=== PATIENT | female | born 1980 | race African-American/Black ===

== ENCOUNTER 2017-12-13 20:59 | Emergency (ER) | payer MEDICAID ==
[~2017-12-13] VITALS: Ht 175.3 cm; Wt 111.1 kg
[~2017-12-13 20:59] MED LIST: IBUPROFEN600 MG ORAL; RANITIDINE HCL150 MG ORAL; ZOFRAN ODT4 MG ORAL
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
[2017-12-13] MEDS ORDERED: Pantoprazole Inj IVP ONE (21:45)
[2017-12-13] MEDS ORDERED: Mylanta II UD 30ml ORAL ONE (21:45)
[2017-12-13 22:04] LABS: BASOPHILS % (AUTO) 1.2 % (0.0-2.0); EOSINOPHILS % (AUTO) 2.4 % (0.0-3.0); HEMOGLOBIN 12.6 G/DL (12.0-16.0); LYMPHOCYTES % (AUTO) 43.1 % (20.0-45.0); MEAN CORPUSCULAR VOLUME 93 FL (80-99); MONOCYTES % (AUTO) 8.1 % (1.0-10.0); NEUTROPHILS % (AUTO) 45.2 % (45.0-75.0); PLATELET COUNT 222 K/UL (150-450); RED BLOOD COUNT 4.06 M/UL (4.20-5.40); RED CELL DISTRIBUTION WIDTH 11.5 % (11.6-14.8); WHITE BLOOD COUNT 6.7 K/UL (4.8-10.8)
[2017-12-13 22:14] LABS: ANION GAP 6 mmol/L (5-15); BLOOD UREA NITROGEN 16 mg/dL (7-18); CALCIUM 9.4 MG/DL (8.5-10.1); CARBON DIOXIDE 28 MMOL/L (21-32); CHLORIDE 105 MMOL/L (98-107); CREATININE 0.8 MG/DL (0.55-1.30); SODIUM 138 MMOL/L (136-145)
[2017-12-13 22:20] LABS: ALANINE AMINOTRANSFERASE 33 U/L (12-78); ALBUMIN 3.4 G/DL (3.4-5.0); ALBUMIN/GLOBULIN RATIO 0.8 (1.0-2.7); ALKALINE PHOSPHATASE 139 U/L (46-116); ASPARTATE AMINO TRANSFERASE 25 U/L (15-37); BILIRUBIN,TOTAL 0.2 MG/DL (0.2-1.0)
[2017-12-13] MEDS ORDERED: PRILOSEC OTC20 MG ORAL (22:39)
[2017-12-13] MEDS ORDERED: HYDROCODON-ACE1 EA15 ORAL (22:39)
[2017-12-13 23:21] VITALS: BP 138/81
--- NOTE | 2017-12-14 10:26 | Diagnostic Imaging Report ---
Indication: Chest pain Comparison: None A single view chest radiograph was obtained. Findings: Cardiomediastinal appearance is within normal limits for age. There is an old right clavicle fracture, well-healed. Multiple old rib fractures on the right. Pulmonary vascularity is appropriate. The diaphragmatic contour is smooth and costophrenic angles are sharp. No pleural effusions are identified. The bones are unremarkable. Impression: No acute findings
--- NOTE | 2017-12-14 17:03 | Cardiology Report ---
APPROVED REPORT EKG Measurement Heart [id number] Normal sinus rhythm Possible Left atrial enlargement Borderline ECG
== END 2017-12-13 23:22 | disposition home or self-care (01) ==
LOC: EMR 21:25
DX: R07.9 Chest pain, unspecified (principal); K29.70 Gastritis, unspecified, without bleeding; J45.909 Unspecified asthma, uncomplicated
CPT/HCPCS: 36415; 71045; 80053; 84484; 85025; 93005; 96374; 96375; 99284; C9113

== ENCOUNTER 2018-04-28 16:29 | Emergency (ER) | payer MEDICAID ==
[~2018-04-28] VITALS: Ht 172.7 cm; Wt 99.8 kg
[~2018-04-28 16:29] MED LIST changes: +HYDROCODON-ACE1 EA15 ORAL; +PRILOSEC OTC20 MG ORAL
[2018-04-28] MEDS ORDERED: NKM (16:58)
[2018-04-28] MEDS ORDERED: CORTISPORIN EAR10 ML RIGHT EAR (17:51)
[2018-04-28] MEDS ORDERED: TYLENOL EXTRA500 MG ORAL (17:51)
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
[2018-04-28 18:25] VITALS: BP 135/69
== END 2018-04-28 18:25 | disposition home or self-care (01) ==
LOC: EMR 17:10
DX: H60.91 Unspecified otitis externa, right ear (principal); R51 Headache; H91.91 Unspecified hearing loss, right ear
CPT/HCPCS: 99283

== ENCOUNTER 2018-09-10 14:40 | Emergency (ER) | payer MEDICAID ==
[~2018-09-10] VITALS: Ht 175.3 cm; Wt 94.8 kg
[~2018-09-10 14:40] MED LIST changes: +CORTISPORIN EAR10 ML RIGHT EAR; +NKM; +TYLENOL EXTRA500 MG ORAL
[2018-09-10 14:50] VITALS: BP 121/75
--- NOTE | 2018-09-10 14:50 | NUR ---
ED Nurse Note: PT WALKED IN TO ER TODAY FROM HOME. AOX4. PT C/O COUGH, THROAT PAIN, AND HEADACHE X 2 DAYS AGO. PT DENIES FEVER. TEMP AT BEDSIDE 98.4F. LUNG SOUNDS CLEAR IN ALL LOBES. NO SIGNS OF RESPIRATORY DISTRESS.
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
[2018-09-10] MEDS ORDERED: TYLENOL325 MG ORAL (14:59)
[2018-09-10] MEDS ORDERED: TAMIFLU75 MG ORAL (14:59)
[2018-09-10] MEDS ORDERED: GUAIFENESIN-CO118 M1 ORAL (14:59)
[2018-09-10 15:07] VITALS: BP 122/76
--- NOTE | 2018-09-10 15:09 | NUR ---
ER Nurse Note: PT SITTING PEACEFULLY IN CHAIR IN NAD. AOX4. PRESCRIPTIONS AND DISCHARGE PAPERWORK EXPLAINED TO PT. PT VERBALIZES UNDERSTANDING AND DENIES ANY QUESTIONS AT THIS TIME. PRESCRIPTIONS AND DISCHARGE PAPERWORK GIVEN TO PT AND ID WRISTBAND REMOVED. PT WALKED OUT OF ER WITH STEADY GAIT WITH ALL BELONGINGS.
== END 2018-09-10 15:07 | disposition home or self-care (01) ==
LOC: EMR 15:01
DX: J11.1 Influenza due to unidentified influenza virus with other respiratory manifestations (principal); J45.909 Unspecified asthma, uncomplicated; I10 Essential (primary) hypertension
CPT/HCPCS: 99283

== ENCOUNTER 2019-03-17 21:57 | Emergency (ER) | payer MEDICAID ==
[~2019-03-17] VITALS: Ht 175.3 cm; Wt 113.9 kg
[~2019-03-17 21:57] MED LIST changes: +GUAIFENESIN-CO118 M1 ORAL; +TAMIFLU75 MG ORAL; +TYLENOL325 MG ORAL
--- NOTE | 2019-03-17 22:09 | NUR ---
ED Nurse Note: pt walked in c/o left eye irritation, itching, discomfort, pain and discharge, and headache, noted mild swelling and redness with tearing, will cont monitor.
[2019-03-17] MEDS ORDERED: POLYTRIM OP SOL10 ML OPHTHALM (22:16)
[2019-03-17] MEDS ORDERED: IBUPROFEN600 MG ORAL (22:16)
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
[2019-03-17 22:20] VITALS: BP 129/75
[2019-03-17 22:21] VITALS: BP 121/70
--- NOTE | 2019-03-17 22:21 | NUR ---
ED Nurse Note: pt cleared to be d/c per ER provider, pt discharge and aftercare instruction provided w/ prescription, pt education done via discussion and handout, pt advised to follow up with pcp or return to ed if changes in condition, vss, ambulatory w/ steady gait, left w/ all belongings, accompanied by .
== END 2019-03-17 22:21 | disposition home or self-care (01) ==
LOC: EMR 22:20
DX: H10.32 Unspecified acute conjunctivitis, left eye (principal); I10 Essential (primary) hypertension; G51.0 Bell's palsy; F17.200 Nicotine dependence, unspecified, uncomplicated; Z91.018 Allergy to other foods
CPT/HCPCS: 99282

== ENCOUNTER 2019-07-23 23:34 | Emergency (ER) | payer MEDICAID ==
[~2019-07-23] VITALS: Ht 172.7 cm; Wt 98.9 kg
[~2019-07-23 23:34] MED LIST changes: +POLYTRIM OP SOL10 ML OPHTHALM
[2019-07-24] MEDS ORDERED: HYDROmorphone 1mg/ml Carpuject IVP ONE (01:00)
[2019-07-24 01:29] LABS: BILIRUBIN, URINE NEGATIVE (NEGATIVE); GLUCOSE, URINE (UA) NEGATIVE (NEGATIVE); KETONES,URINE NEGATIVE (NEGATIVE); LEUKOCYTE ESTERASE ,URINE 1+ (NEGATIVE); NITRITE,URINE NEGATIVE (NEGATIVE); PH,URINE 5 (4.5-8.0); PROTEIN,URINE 1+ (NEGATIVE); UROBILINOGEN,URINE 4 MG/DL (0.0-1.0)
[2019-07-24 01:36] LABS: APPEARANCE,URINE SLIGHTLY CLOUDY; COLOR,URINE YELLOW
[2019-07-24] MEDS ORDERED: HYDROCODON-ACE1 EA15 ORAL (01:57)
[2019-07-24] MEDS ORDERED: IBUPROFEN600 MG ORAL (01:57)
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
--- NOTE | 2019-07-24 01:58 | Diagnostic Imaging Report ---
Indications: Pain, trauma, fall Technique: Spiral acquisitions obtained through the brain. Angled axial and coronal 5 x 5 mm slices were reconstructed. Total dose length product 1520 mGycm. CTDI vol(s) 62 mGy. Dose reduction achieved using automated exposure control Comparison: None. Findings: No acute intracranial hemorrhage or edema. No mass effect or midline shift. Normal stearns-white differentiation. Normal size ventricles and extra axial CSF spaces. There is extensive ossification of the dura. The calvarium is intact. There is evidence of prior right mastoid surgery. The visualized orbits and sinuses are unremarkable. There is a probable empty sella incidentally noted. Impression: Negative for acute intracranial bleed or mass effect Evidence of prior right mastoid surgery This essentially agrees with the preliminary interpretation provided overnight by [employer] [facility]. The CT scanner at [facility] is accredited by the [employer] and the scans are performed using protocols designed to limit radiation exposure to as low as reasonably achievable to attain images of sufficient resolution adequate for diagnostic evaluation.
[2019-07-24 02:00] VITALS: BP 144/91
[2019-07-24] MEDS ORDERED: Ketorolac 30mg Inj ONE (02:04)
[2019-07-24] MEDS ORDERED: Ketorolac 30mg Inj IV ONE (02:15)
[2019-07-24 02:20] VITALS: BP 144/91
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
== END 2019-07-24 02:20 | disposition home or self-care (01) ==
LOC: EMR 23:59
DX: S09.90XA Unspecified injury of head, initial encounter (principal); R42 Dizziness and giddiness; S80.02XA Contusion of left knee, initial encounter; W19.XXXA Unspecified fall, initial encounter; Y92.9 Unspecified place or not applicable; Z91.018 Allergy to other foods; I10 Essential (primary) hypertension
CPT/HCPCS: 70450; 73564; 81003; 81025; 96374; 96375; J1170; J1885; J2405; Z7502; 99284

== ENCOUNTER 2019-09-15 13:04 | Emergency (ER) | payer MEDICAID ==
[~2019-09-15] VITALS: Ht 172.7 cm; Wt 96.6 kg
[2019-09-15 13:33] VITALS: BP 126/76
--- NOTE | 2019-09-15 13:34 | NUR ---
ED Nurse Note:pt. came from home with c/o abdominal pain and nausea, A/Ox4 skin is intact, urine sent to labs,
[2019-09-15 13:52] LABS: APPEARANCE,URINE SLIGHTLY CLOUDY; BILIRUBIN, URINE NEGATIVE (NEGATIVE); COLOR,URINE BROWN; GLUCOSE, URINE (UA) NEGATIVE (NEGATIVE); KETONES,URINE 2+ (NEGATIVE); LEUKOCYTE ESTERASE ,URINE 2+ (NEGATIVE); NITRITE,URINE NEGATIVE (NEGATIVE); PH,URINE 6 (4.5-8.0); PROTEIN,URINE 1+ (NEGATIVE); UROBILINOGEN,URINE 4 MG/DL (0.0-1.0)
--- NOTE | 2019-09-15 13:52 | NUR ---
ED Nurse Note:blood sent to labs, pt. asking for pain meds
[2019-09-15 14:01] LABS: BASOPHILS % (AUTO) 1.6 % (0.0-2.0); EOSINOPHILS % (AUTO) 1.3 % (0.0-3.0); HEMATOCRIT 37.2 % (37.0-47.0); HEMOGLOBIN 12.1 G/DL (12.0-16.0); LYMPHOCYTES % (AUTO) 45.1 % (20.0-45.0); MEAN CORPUSCULAR VOLUME 93 FL (80-99); MONOCYTES % (AUTO) 8.5 % (1.0-10.0); NEUTROPHILS % (AUTO) 43.5 % (45.0-75.0); PLATELET COUNT 222 K/UL (150-450); RED BLOOD COUNT 3.99 M/UL (4.20-5.40); WHITE BLOOD COUNT 5.4 K/UL (4.8-10.8)
[2019-09-15 14:10] LABS: ANION GAP 10 mmol/L (5-15); BLOOD UREA NITROGEN 10 mg/dL (7-18); CALCIUM 8.6 MG/DL (8.5-10.1); CARBON DIOXIDE 24 MMOL/L (21-32); CHLORIDE 105 MMOL/L (98-107); CREATININE 0.8 MG/DL (0.55-1.30); POTASSIUM 4.5 MMOL/L (3.5-5.1); SODIUM 139 MMOL/L (136-145)
[2019-09-15 14:15] LABS: ALANINE AMINOTRANSFERASE 27 U/L (12-78); ALBUMIN 3.4 G/DL (3.4-5.0); ALBUMIN/GLOBULIN RATIO 0.7 (1.0-2.7); ALKALINE PHOSPHATASE 133 U/L (46-116); ASPARTATE AMINO TRANSFERASE 16 U/L (15-37); BILIRUBIN,TOTAL 0.8 MG/DL (0.2-1.0)
[2019-09-15] MEDS ORDERED: Morphine Sulfate 4mg/ml Inj (IV USE ONLY) IVP ONE (14:15)
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
[2019-09-15] MEDS ORDERED: Omnipaque-300 100ml vial INJ PRN (15:00)
--- NOTE | 2019-09-15 15:31 | NUR ---
ED Nurse Note:pt. can tolerate oral intake, went to CT abdomen
--- NOTE | 2019-09-15 16:03 | NUR ---
ED Nurse Note:pt. came back from CT scan
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
[2019-09-15] MEDS ORDERED: DiphenhydrAMINE 50mg/ml Inj IVP ONE (16:30)
[2019-09-15] MEDS ORDERED: Ketorolac 30mg Inj IV ONE (16:30)
[2019-09-15] MEDS ORDERED: Metoclopramide 10mg/2ml Inj IVP ONE (16:30)
--- NOTE | 2019-09-15 16:45 | NUR ---
ED Nurse Note:pain meds were given, pt reported relieve of headache
[2019-09-15 16:56] VITALS: BP 128/75
[2019-09-15 16:58] VITALS: BP 128/75
[2019-09-15] MEDS ORDERED: FAMOTIDINE20 MG ORAL (16:59)
[2019-09-15] MEDS ORDERED: NITROFURANTOIN100 M2 ORAL (16:59)
[2019-09-15] MEDS ORDERED: TYLENOL EXTRA500 MG ORAL (16:59)
[2019-09-15] MEDS ORDERED: ONDANSETRON ODT4 MG BC (16:59)
--- NOTE | 2019-09-15 17:00 | NUR ---
ER DISCHARGE NOTE: Patient is cleared to be discharged per ERMD, pt is aox4, on room air, with stable vital signs. pt was given dc and prescription instructions, pt was able to verbalize understanding, pt id band and iv site removed without complications. pt is able to ambulate with steady gait. pt took all belongings.
== END 2019-09-15 16:58 | disposition home or self-care (01) ==
LOC: EMR 13:40
DX: R11.10 Vomiting, unspecified (principal); R51 Headache; N30.01 Acute cystitis with hematuria; R10.31 Right lower quadrant pain; R94.5 Abnormal results of liver function studies; J45.909 Unspecified asthma, uncomplicated; G51.0 Bell's palsy; Z91.018 Allergy to other foods
CPT/HCPCS: 36415; 74177; 80053; 81003; 81025; 83690; 85025; 87086; 96361; 96374; 96375; J1200; J1885; J2270; J2405; J2765; J7030; Q9967; S0028; Z7502; 99284

== ENCOUNTER 2019-10-16 09:42 | Emergency (ER) | payer MEDICAID ==
[~2019-10-16] VITALS: Ht 172.7 cm; Wt 95.3 kg
[~2019-10-16 09:42] MED LIST changes: +FAMOTIDINE20 MG ORAL; +NITROFURANTOIN100 M2 ORAL; +ONDANSETRON ODT4 MG BC
[2019-10-16] MEDS ORDERED: ALBUTEROL SULF8.5 GM INH (09:55)
[2019-10-16 09:57] VITALS: BP 132/80
--- NOTE | 2019-10-16 09:57 | NUR ---
ED Nurse Note: Pt waslked in to ED for c/o worsened menstrual cramping pain x 2 days. PT took Tylenol#3 but is ineffective.
[2019-10-16] MEDS ORDERED: Ketorolac 60mg Inj IM ONE (10:30)
[2019-10-16] MEDS ORDERED: TRAMADOL HCL50 MG ORAL (10:31)
[2019-10-16 10:43] VITALS: BP 130/80
--- NOTE | 2019-10-16 10:43 | NUR ---
ER DISCHARGE NOTE: Patient is cleared to be discharged per ERMD, pt is aox4, on room air, with stable vital signs. pt was given dc and prescription instructions, pt was able to verbalize understanding, pt id band removed without complications. pt is able to ambulate with steady gait. pt took all belongings.
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
== END 2019-10-16 10:43 | disposition home or self-care (01) ==
LOC: EMR 10:27
DX: R10.2 Pelvic and perineal pain (principal); R51 Headache; G83.9 Paralytic syndrome, unspecified; F32.9 Major depressive disorder, single episode, unspecified; F31.9 Bipolar disorder, unspecified; G47.00 Insomnia, unspecified
CPT/HCPCS: 96372; Z7502; 99283